=== PATIENT | male | born 1940 | race American Indian/Alaskan Native ===

== ENCOUNTER 2017-07-25 12:59 | Outpatient (CLI) | payer MEDICARE, OTHER ==
--- NOTE | 2017-07-25 14:05 | XRay Report ---
Chest 2 views: History: COPD. Findings: Normal cardiomediastinal silhouette. Trachea is midline. Evidence of mild emphysema. No acute consolidation mass or pleural effusion. Impression: Emphysema. No acute lung changes.
== END 2017-07-25 13:00 | disposition home or self-care (01) ==
LOC: XRAY 12:59
PROVIDERS: ATTEND Internal Medicine
DX: J44.9 Chronic obstructive pulmonary disease, unspecified (principal); R61 Generalized hyperhidrosis
CPT/HCPCS: 71046

== ENCOUNTER 2017-08-18 09:04 | Emergency (ER) | payer MEDICARE ==
--- NOTE | 2017-08-18 10:10 | XRay Report ---
ROUTINE CHEST, TWO VIEWS: HISTORY: Shortness of breath. Compared to 07/25/17. Mild hyperinflation is again suggested. There is minor scarring in the middle lobe, otherwise, the lungs are clear. No evidence for pneumonia, pleural effusion or pneumothorax. Heart and mediastinal structures are within normal limits. Healing right posterior lateral seventh rib fracture is noted. IMPRESSION: Mild hyperinflation. No acute cardiopulmonary process.
[2017-08-18 11:24] LABS: Basophils % (Auto) 0.7 % (0.0-1.8); Eosinophils % (Auto) 0.4 % (0.0-4.3); Hematocrit 54.7 % (35.5-45.6); Hemoglobin 18.6 gm/dl (11.8-15.2); Lymphocytes # (Auto) 2.1 K/mm3 (1.2-5.4); Lymphocytes % (Auto) 31.1 % (13.4-35.0); Mean Corpuscular HGB Conc 34 % (32-34); Mean Corpuscular Hemoglobin 30 pg (28-32); Mean Corpuscular Volume 89 fl (84-94); Monocytes # (Auto) 0.6 K/mm3 (0.0-0.8); Monocytes % (Auto) 8.7 % (0.0-7.3); Platelet Count 268 K/mm3 (140-440); Red Blood Count 6.18 M/mm3 (3.65-5.03)
[2017-08-18 11:40] LABS: BUN/Creatinine Ratio 18; Blood Urea Nitrogen 14 mg/dL (9-20); Calcium 9.6 mg/dL (8.4-10.2); Hemolysis Index 8
[2017-08-18] MEDS ORDERED: DELTASONE PO ONE (13:49)
[2017-08-18] MEDS ORDERED: LEVAQUIN PO ONE (13:49)
[2017-08-18 13:51] VITALS: BP 160/104
--- NOTE | 2017-08-18 13:54 | Emergency Department Report ---
ED General Adult HPI - General Chief complaint: Dyspnea/Respdistress Stated complaint: FLU LIKE SYMPTOMS Time Seen by Provider: 08/18/17 13:22 Source: patient Mode of arrival: Ambulatory Limitations: No Limitations - History of Present Illness Initial comments: Visit healthy 77-year-old male who presents with 2 months of shortness of breath chest congestion and nasal congestion and nonproductive cough. He's had subjective fever. He also had chills. Symptoms are worse at night. He has also postnasal drip. He does smoke tobacco. Does not have a primary care physician. He has hears "rattling" in his chest. Denies pain. Patient' s symptoms began around Snow time. -: Gradual, month(s) (2) Location: chest (chest congestion, nasal congestion) Consistency: intermittent Worsens with: other (laying flat, worse at night) - Related Data Previous Rx's Medication Instructions Recorded Last Taken Type Levofloxacin [Levaquin TAB] 500 mg PO QDAY 6 Days #6 tablet 08/18/17 Unknown Rx Loratadine 10 mg PO DAILY 30 Days #30 tablet 08/18/17 Unknown Rx predniSONE [Deltasone] 60 mg PO QDAY 4 Days #12 tab 08/18/17 Unknown Rx Allergies Allergy/AdvReac Type Severity Reaction Status Date / Time No Known Allergies Allergy Unverified 07/25/17 12:59 ED Review of Systems ROS: Stated complaint: FLU LIKE SYMPTOMS Other details as noted in HPI Comment: All other systems reviewed and negative Constitutional: fever, malaise Respiratory: cough Cardiovascular: denies: chest pain Endocrine: excessive sweating Gastrointestinal: denies: abdominal pain ED Past Medical Hx - Past Medical History Previous Medical History?: No - Surgical History Past Surgical History?: No - Social History Smoking Status: Current Every Day Smoker Substance Use Type: None - Medications Home Medications: Home Medications Medication Instructions Recorded Confirmed Last Taken Type Levofloxacin [Levaquin TAB] 500 mg PO QDAY 6 Days #6 tablet 08/18/17 Unknown Rx Loratadine 10 mg PO DAILY 30 Days #30 tablet 08/18/17 Unknown Rx predniSONE [Deltasone] 60 mg PO QDAY 4 Days #12 tab 08/18/17 Unknown Rx ED Physical Exam - General Limitations: No Limitations General appearance: alert, in no apparent distress, other (lean athletic build. Looking younger than his stated age.) - Head Head exam: Present: atraumatic, normocephalic - Eye Eye exam: Present: normal appearance - ENT ENT exam: Present: normal exam, normal orophraynx, mucous membranes moist - Neck Neck exam: Present: normal inspection. Absent: meningismus - Respiratory Respiratory exam: Present: normal lung sounds bilaterally, wheezes, rhonchi. Absent: respiratory distress, rales - Cardiovascular Cardiovascular Exam: Present: regular rate, normal rhythm. Absent: systolic murmur, diastolic murmur, rubs, gallop - GI/Abdominal GI/Abdominal exam: Present: soft, normal bowel sounds. Absent: distended, tenderness, guarding, rebound - Rectal Rectal exam: Present: deferred - Extremities Exam Extremities exam: Present: normal inspection - Back Exam Back exam: Present: normal inspection - Neurological Exam Neurological exam: Present: alert, oriented X3 - Psychiatric Psychiatric exam: Present: normal affect, normal mood - Skin Skin exam: Present: warm, dry, intact, normal color. Absent: rash ED Course Vital Signs 08/18/17 09:36 Temperature 97.8 F Pulse Rate 97 H Respiratory 18 Rate Blood Pressure 144/104 O2 Sat by Pulse 100 Oximetry ED Medical Decision Making - Lab Data Result diagrams: 08/18/17 11:02 08/18/17 11:02 Laboratory Results - last 24 hr 08/18/17 08/18/17 11:02 11:02 WBC 6.9 RBC 6.18 H Hgb 18.6 H Hct 54.7 H MCV 89 MCH 30 MCHC 34 RDW 15.0 Plt Count 268 Lymph % (Auto) 31.1 Mccracken % (Auto) 8.7 H Eos % (Auto) 0.4 Baso % (Auto) 0.7 Lymph # 2.1 Mccracken # 0.6 Eos # 0.0 Baso # 0.0 Seg Neutrophils % 59.1 Seg Neutrophils # 4.1 Sodium 139 Potassium 4.6 Chloride 98.8 Carbon Dioxide 28 Anion Gap 17 BUN 14 Creatinine 0.8 Estimated GFR > 60 BUN/Creatinine Ratio 18 Glucose 99 Calcium 9.6 Vital Signs - 24 hr 08/18/17 08/18/17 09:36 13:50 Temperature 97.8 F 97.7 F Pulse Rate 97 H 87 Respiratory 18 18 Rate Blood Pressure 144/104 Blood Pressure 160/104 [Right] O2 Sat by Pulse 100 96 Oximetry - EKG Data -: EKG Interpreted by Me - EKG Data 08/18/17 14:01 EKG obtained at 0 942 Normal sinus rhythm rate of 80, normal axis normal intervals no ST elevation nonspecific T wave pattern - Medical Decision Making Mr. Crowley presents with cough, nasal congestion and chest congestion. With abnormal lung exam, I suspect chronic bronchitis with history of tobacco use. I prescribed levofloxacin and prednisone. Also prescribed loratadine. I referred patient to outpatient medicine physician regional administrative assistant. He did request a primary care physician. Antibiotics are indicated with symptoms greater than 3 weeks and also tobacco abuse. Critical care attestation.: If time is entered above; I have spent that time in minutes in the direct care of this critically ill patient, excluding procedure time. ED Disposition Clinical Impression: Acute bronchitis Disposition: - TO HOME OR SELFCARE Is pt being admited?: No Does the pt Need Aspirin: No Condition: Stable Instructions: Acute Bronchitis (ED), Chronic Bronchitis (ED) Prescriptions: Levofloxacin [Levaquin TAB] 500 mg PO QDAY 6 Days #6 tablet Loratadine 10 mg PO DAILY 30 Days #30 tablet predniSONE [Deltasone] 60 mg PO QDAY 4 Days #12 tab Referrals: SARA STEVENS MD [Staff Physician] - [facility] [place] [Outside] - 3-5 Days Time of Disposition: 13:56
== END 2017-08-18 14:07 | disposition home or self-care (01) ==
LOC: ED 09:04
DX: J20.9 Acute bronchitis, unspecified (principal); F17.200 Nicotine dependence, unspecified, uncomplicated
CPT/HCPCS: 36415; 71046; 80048; 85025; 87040; 93005; 93010; 99284; J7512

== ENCOUNTER 2017-09-09 13:13 | Emergency (ER) | payer MEDICARE ==
[2017-09-09] MEDS ORDERED: TESSALON PERLES PO ONE (14:56)
[2017-09-09] MEDS ORDERED: TYLENOL PO ONE (14:56)
[2017-09-09] MEDS ORDERED: CATAPRES PO ONE (14:57)
--- NOTE | 2017-09-09 15:17 | Emergency Department Report ---
Chief Complaint: Upper Respiratory Infection Stated Complaint: BRONCHITIS Time Seen by Provider: 09/09/17 14:43 - HPI History of Present Illness: The patient is a 77-year-old male with a history of long-standing tobacco use, who presents for evaluation of cough and shortness of breath. The patient reports a intermittently productive cough of clear yellow sputum, associated with episodic shortness of breath worsened with exertion or coughing, improved at rest. He shares that he has continued to smoke despite diagnosis of bronchitis within the past 2 weeks and initiation of antibiotics. The patient denies fever, trauma to the chest, chest pain, syncope, hemoptysis, unilateral leg swelling, recent immobilization, history of DVT or PE, recent cancer. - Exam Vital Signs: Vital Signs 09/09/17 13:55 Temperature 97.9 F Pulse Rate 56 L Respiratory 18 Rate Blood Pressure 149/101 O2 Sat by Pulse 94 Oximetry MSE screening note: Focused history and physical exam performed. Due to findings the following was ordered: ED Disposition for MSE Condition: Stable Referrals: PRIMARY CARE, [Primary Care Provider] - 3-5 Days
--- NOTE | 2017-09-09 15:21 | XRay Report ---
CHEST XRAY, 2 VIEWS: History: Dyspnea. Findings: There is mild diffuse interstitial coarsening. The lungs are hyperexpanded but clear. No infiltrate, pleural fluid or pneumothorax is detected. The cardiac silhouette and pulmonary vasculature are within normal limits for technique. Healing right posterior seventh rib fracture is noted. IMPRESSION: Changes consistent with COPD. No acute cardiopulmonary process. No significant change since 08/18/17.
[2017-09-09] MEDS ORDERED: DECADRON IM ONE (15:54)
[2017-09-09] MEDS ORDERED: DUONEB *Not for PRN Use IH ONE (15:55)
--- NOTE | 2017-09-09 16:21 | Emergency Department Report ---
ED Shortness of Breath HPI - General Chief Complaint: Upper Respiratory Infection Stated Complaint: BRONCHITIS Time Seen by Provider: 09/09/17 14:43 Source: patient Mode of arrival: Ambulatory Limitations: No Limitations - History of Present Illness Initial Comments: This is a 77-year-old male nontoxic, well nourished in appearance, no acute signs of distress presents to the ED with c/o of acute on chronic cough and shortness of breathe. Patient stated he was seen 2 weeks ago and was diagnosed with Bronchitis and had finished his antibiotics and prednisone with no relief. Patient denies any chest pain, fever, chills, syncope, hemoptysis, unilateral leg swelling or pain, immbolization, numbness, tingling, calf pain or calf tenderness. Patient denies any recent DVT or PE. Patient denies any allergies. Patient stated he is a 50+ year smoker. MD Complaint: shortness of breath, cough -: week(s) (2) Severity: mild Pain Scale: 0 Consistency: constant Improves With: nothing Worsens With: nothing Associated Symptoms: cough Treatments Prior to Arrival: none - Related Data Previous Rx's Medication Instructions Recorded Last Taken Type Levofloxacin [Levaquin TAB] 500 mg PO QDAY 6 Days #6 tablet 08/18/17 Unknown Rx Loratadine 10 mg PO DAILY 30 Days #30 tablet 08/18/17 Unknown Rx predniSONE [Deltasone] 60 mg PO QDAY 4 Days #12 tab 08/18/17 Unknown Rx ALBUTEROL Inhaler [ProAir HFA 2 puff IH QID PRN #1 inhalation 09/09/17 Unknown Rx Inhaler] Benzonatate [Tessalon Perle] 100 mg PO Q8H PRN #20 capsule 09/09/17 Unknown Rx Prednisone [predniSONE 10 mg 10 mg PO .TAPER #1 tab.ds.pk 09/09/17 Unknown Rx (6-Day Pack, 21 Tabs)] Allergies Allergy/AdvReac Type Severity Reaction Status Date / Time No Known Allergies Allergy Unverified 07/25/17 12:59 ED Review of Systems ROS: Stated complaint: BRONCHITIS Other details as noted in HPI Constitutional: denies: chills, fever Eyes: denies: eye pain, eye discharge, vision change ENT: denies: ear pain, throat pain Respiratory: cough, shortness of breath. denies: wheezing Cardiovascular: denies: chest pain, palpitations Endocrine: no symptoms reported Gastrointestinal: denies: abdominal pain, nausea, diarrhea Genitourinary: denies: urgency, dysuria Musculoskeletal: denies: back pain, joint swelling, arthralgia Skin: denies: rash, lesions Neurological: denies: headache, weakness, paresthesias Psychiatric: denies: anxiety, depression Hematological/Lymphatic: denies: easy bleeding, easy bruising ED Past Medical Hx - Past Medical History Previous Medical History?: Yes Additional medical history: Bronchitis - Surgical History Past Surgical History?: No - Social History Smoking Status: Current Every Day Smoker Substance Use Type: Prescribed - Medications Home Medications: Home Medications Medication Instructions Recorded Confirmed Last Taken Type Levofloxacin [Levaquin TAB] 500 mg PO QDAY 6 Days #6 tablet 08/18/17 Unknown Rx Loratadine 10 mg PO DAILY 30 Days #30 tablet 08/18/17 Unknown Rx predniSONE [Deltasone] 60 mg PO QDAY 4 Days #12 tab 08/18/17 Unknown Rx ALBUTEROL Inhaler [ProAir HFA 2 puff IH QID PRN #1 inhalation 09/09/17 Unknown Rx Inhaler] Benzonatate [Tessalon Perle] 100 mg PO Q8H PRN #20 capsule 09/09/17 Unknown Rx Prednisone [predniSONE 10 mg 10 mg PO .TAPER #1 tab.ds.pk 09/09/17 Unknown Rx (6-Day Pack, 21 Tabs)] ED Physical Exam - General Limitations: No Limitations General appearance: alert, in no apparent distress - Head Head exam: Present: atraumatic, normocephalic - Eye Eye exam: Present: normal appearance, PERRL, EOMI Pupils: Present: normal accommodation - ENT ENT exam: Present: normal exam, normal orophraynx, mucous membranes moist, TM's normal bilaterally, normal external ear exam - Neck Neck exam: Present: normal inspection, full ROM. Absent: tenderness, meningismus, lymphadenopathy, thyromegaly - Respiratory Respiratory exam: Present: normal lung sounds bilaterally, wheezes (bilateral upper and lower lobes). Absent: respiratory distress, rales, rhonchi, stridor, chest wall tenderness, accessory muscle use, decreased breath sounds, prolonged expiratory - Cardiovascular Cardiovascular Exam: Present: regular rate, normal rhythm, normal heart sounds. Absent: irregular rhythm, systolic murmur, diastolic murmur, rubs, gallop - GI/Abdominal GI/Abdominal exam: Present: soft, normal bowel sounds. Absent: distended, tenderness, guarding, rebound, rigid, diminished bowel sounds - Rectal Rectal exam: Present: deferred - Extremities Exam Extremities exam: Present: normal inspection, full ROM, normal capillary refill. Absent: tenderness, pedal edema, joint swelling, calf tenderness - Back Exam Back exam: Present: normal inspection, full ROM. Absent: tenderness, CVA tenderness (R), CVA tenderness (L), muscle spasm, paraspinal tenderness, vertebral tenderness, rash noted - Neurological Exam Neurological exam: Present: alert, oriented X3, CN II-XII intact, normal gait, reflexes normal - Psychiatric Psychiatric exam: Present: normal affect, normal mood - Skin Skin exam: Present: warm, dry, intact, normal color. Absent: rash ED Course Vital Signs 09/09/17 09/09/17 13:55 18:06 Temperature 97.9 F Pulse Rate 56 L 52 L Respiratory 18 20 Rate Blood Pressure 149/101 Blood Pressure 138/96 [Right] O2 Sat by Pulse 94 94 Oximetry - Reevaluation(s) Reevaluation #1: 09/09/17 16:22 Patient is speaking in full sentences with no signs of distress noted. - Consultations Consultation #1: 09/09/17 16:22 Patient has been consulted with Dr. Garcia about patient history, physical exam, and labs and examined and screened patient and agrees to ED plan of care and discharge plan of care. ED Medical Decision Making - Medical Decision Making This is a 77-year-old that presents with COPD. Patient is stable and was examined by me and Dr. Garcia. Chest xray has been obtained and dictated by radiologist with COPD. Patient was notified of the xray results with no questions noted by the patient. Patient just finished Levo. Patient received Decardon and DuoNeb in the ED. Patient stated symptoms of shortness of breathe subsided. I will treat patient with predinsone dose pack and albuterol. Patient was instructed and refereed to Follow-up with a primary care/speech and hearing clinic director doctor in 3-5 days or if symptoms worsen and continue return to emergency room as soon as possible. At time of discharge, the patient does not seem toxic or ill in appearance. No acute signs of distress noted. Patient agrees to discharge treatment plan of care. No further questions noted by the patient. Critical care attestation.: If time is entered above; I have spent that time in minutes in the direct care of this critically ill patient, excluding procedure time. ED Disposition Clinical Impression: COPD (chronic obstructive pulmonary disease) Qualifiers: COPD type: unspecified COPD Qualified Code(s): J44.9 - Chronic obstructive pulmonary disease, unspecified Disposition: - TO HOME OR SELFCARE Is pt being admited?: No Does the pt Need Aspirin: No Condition: Stable Instructions: Albuterol (By breathing), Prednisone (By mouth), Chronic Obstructive Pulmonary Disease (ED) Additional Instructions: Follow-up with a primary care/speech and hearing clinic director doctor in 3-5 days or if symptoms worsen and continue return to emergency room as soon as possible. Prescriptions: ALBUTEROL Inhaler [ProAir HFA Inhaler] 2 puff IH QID PRN #1 inhalation PRN Reason: Shortness Of Breath Benzonatate [Tessalon Perle] 100 mg PO Q8H PRN #20 capsule PRN Reason: Cough Prednisone [predniSONE 10 mg (6-Day Pack, 21 Tabs)] 10 mg PO .TAPER #1 tab.ds.pk Referrals: [facility] [place] [Outside] - 3-5 Days [facility] [Outside] - 3-5 Days PRIMARY CAREMD [Primary Care Provider] - 3-5 Days MELISSA WINKLER MD [Staff Physician] - 3-5 Days PARMINDER FRAGOSO MD [Staff Physician] - 3-5 Days Forms: Work/School Release Form(ED)
[2017-09-09 18:07] VITALS: BP 138/96
== END 2017-09-09 18:06 | disposition home or self-care (01) ==
LOC: ED 13:13
DX: J44.9 Chronic obstructive pulmonary disease, unspecified (principal); F17.200 Nicotine dependence, unspecified, uncomplicated
CPT/HCPCS: 71046; 96372; 99283; J1100